=== PATIENT | female | born 1970 | race Caucasian/White ===

== ENCOUNTER 2017-04-07 14:56 | Outpatient (CLI) | payer OTHER ==
--- NOTE | 2017-04-08 09:18 | XRAY Report ---
TWO VIEW CHEST: 04/07/2017 CLINICAL INDICATION: Cough, sarcoidosis. COMPARISON: CT of 12/05/2014, chest x-ray of 12/03/2014. FINDINGS: Frontal and lateral views of the chest demonstrate a normal cardiac silhouette. There has been progression of interstitial disease as well as increasing prominence of the left hilum, compatib le with progression of the given diagnosis of sarcoidosis. No focal infiltrate, effusion, or pneumoth orax is present. IMPRESSION: PROGRESSING INTERSTITIAL DISEASE AND LEFT HILAR PROMINENCE, COMPATIBLE WITH PROGRESSION OF SARCOIDOSIS. JOB #: [id number] EXT JOB #:[id number]
== END 2017-04-07 14:57 | disposition home or self-care (01) ==
LOC: DI.S 14:56
PROVIDERS: ATTEND Physician Assistant
DX: D86.0 Sarcoidosis of lung (principal)
CPT/HCPCS: 71020

== ENCOUNTER 2017-07-08 10:37 | Outpatient (CLI) | payer OTHER ==
--- NOTE | 2017-07-14 11:42 | Mammography Report ---
EXAM: DIGITAL BILATERAL SCREENING MAMMOGRAM: 07/08/2017 CLINICAL INDICATION: A 46-year-old, for screening. COMPARISON: 05/2016, 12/2011, 10/2008. TECHNIQUE: Routine CC and MLO projections were obtained of the breasts. Bilateral laterally exaggerated craniocaudal views. FINDINGS: Parenchymal tissue within the breasts is predominantly fatty replaced. There are no dominant masses, suspicious microcalcifications, or secondary signs of malignancy. In comparison to the previous studies, there are no significant changes. IMPRESSION: NO MAMMOGRAPHIC EVIDENCE OF MALIGNANCY. NO SIGNIFICANT INTERVAL CHANGES. RECOMMENDATION: Screening mammography is recommended annually. BIRADS category 1 - negative. STANDARD QUALIFYING STATEMENTS: 1. This examination was reviewed with the aid of Computed-Aided Detection (CAD) . 2. A negative or benign imaging report should not delay biopsy if clinically suspicious findings are present. Consider surgical consultation if warranted. More than 5% of cancers are not identified by imaging. 3. Dense breasts may obscure an underlying neoplasm. TD: 07/09/2017 16:36 ROSCOE
== END 2017-07-08 10:38 | disposition home or self-care (01) ==
LOC: DI.S 10:37
PROVIDERS: ATTEND Physician Assistant
DX: Z12.31 Encounter for screening mammogram for malignant neoplasm of breast (principal)
CPT/HCPCS: 77067

== ENCOUNTER 2019-05-09 08:03 | Outpatient (CLI) | payer OTHER ==
[2019-05-09 11:22] LABS: BASOPHILS # (AUTO) 0.1 10^3/uL (0.0-0.1); BASOPHILS % (AUTO) 1.2 %; EOSINOPHILS # (AUTO) 0.2 10^3/uL (0.0-0.7); EOSINOPHILS % (AUTO) 1.6 %; HGB - HEMOGLOBIN 14.3 g/dL (12.0-16.0); LYMPHOCYTES # (AUTO) 2.3 10^3/uL (1.5-3.5); LYMPHOCYTES % (AUTO) 19.9 %; MEAN CORPUSCULAR HEMOGLOBIN 28.8 pg (27.0-31.0); MEAN CORPUSCULAR HGB CONC 32.6 g/dL (32.0-36.0); MEAN CORPUSCULAR VOLUME 88.3 fL (81.0-99.0); MEAN PLATELET VOLUME 9.7 fL (7.9-10.8); MONOCYTES % (AUTO) 8.8 %; NEUTROPHILS # (AUTO) 7.8 10^3/uL (1.5-6.6); NEUTROPHILS % (AUTO) 67.8 %; PLT - PLATELET COUNT 364 10^3/uL (130-450); RED BLOOD COUNT 4.97 10^6/uL (4.20-5.40); RED CELL DISTRIBUTION WIDTH 13.7 % (12.0-15.0); WHITE BLOOD COUNT 11.5 x10^3/uL (4.8-10.8)
[2019-05-09 11:41] LABS: ALBUMIN 3.6 g/dL (3.2-5.5); ALBUMIN/GLOBULIN RATIO 1.2 (1.0-2.2); ALKALINE PHOSPHATASE 30 IU/L (42-121); ALT ALANINE AMINOTRANSFERASE 22 IU/L (10-60); AST ASPARTATE AMINOTRANSFERASE 17 IU/L (10-42); BILIRUBIN,TOTAL 0.7 mg/dL (0.2-1.0); BUN - BLOOD UREA NITROGEN 20 mg/dL (6-20); CALCIUM 8.6 mg/dL (8.5-10.3); CARBON DIOXIDE - CO2 29 mmol/L (21-32); CHLORIDE 102 mmol/L (101-111); CHOL/HDL RATIO 3.4 (<4.4); CHOLESTEROL 238 mg/dL; GFR - MDRD 59 (>89); GLUCOSE 78 mg/dL (70-100); HDL CHOLESTEROL 70 mg/dL; LDL CHOLESTEROL,CALCULATED 158 mg/dL; LDL/HDL RATIO 2.3 (<4.4); SODIUM 139 mmol/L (135-145); TOTAL PROTEIN 6.5 g/dL (6.7-8.2); VLDL CHOLESTEROL 10 mg/dL
== END 2019-05-09 08:04 | disposition home or self-care (01) ==
LOC: LAB.S 08:03
PROVIDERS: ATTEND Physician Assistant
DX: D86.0 Sarcoidosis of lung (principal); Z13.220 Encounter for screening for lipoid disorders; Z13.1 Encounter for screening for diabetes mellitus
CPT/HCPCS: 36415; 80053; 80061; 83721; 85025

== ENCOUNTER 2021-07-23 10:05 | Outpatient (CLI) | payer OTHER ==
--- NOTE | 2021-07-23 10:50 | XRAY Report ---
PROCEDURE: Cervical Spine 2 View INDICATIONS: NECK PAIN TECHNIQUE: 3 view(s) of the cervical spine were acquired. COMPARISON: None. FINDINGS: Bones: No fractures or dislocations to the T1 level. The lateral masses of C1 appear intact on the odontoid view. No suspicious bony lesions. Multilevel disc space narrowing and endplate osteophyte formation. Facet hypertrophy throughout the mid and lower cervical spine. Soft tissues: No prevertebral soft tissue swelling. IMPRESSION: Multilevel degenerative disc and facet disease. No acute fracture. No osseous lesion. If symptoms and/or clinical suspicion for pathology continue, further assessment with repeat plain film s, or advanced imaging (e.g., CT, MRI, or bone scan) is recommended for further assessment. Reviewed by: Rasheeda Acosta MD on 07/23/2021 10:49 AM [facility] Approved by: Rasheeda Acosta MD on 07/23/2021 10:49 AM [facility] Station ID: [id number]
== END 2021-07-23 10:06 | disposition home or self-care (01) ==
LOC: DI.S 10:05
PROVIDERS: ATTEND Registered Nurse
DX: M47.812 Spondylosis without myelopathy or radiculopathy, cervical region (principal); M50.30 Other cervical disc degeneration, unspecified cervical region

== ENCOUNTER 2021-08-28 14:22 | Outpatient (CLI) | payer OTHER ==
--- NOTE | 2021-08-28 16:45 | Ultrasound Report ---
PROCEDURE: Ext Limited Non Vascular INDICATIONS: SWELLING,MASS, LUMP UPPER LEFT LIMB TECHNIQUE: Real-time scanning was performed of the left upper extremity (posterior forearm), with im age documentation. COMPARISON: None. FINDINGS: No sonographic evidence of a mass in the area of clinical concern. However, mild soft tiss ue edema is seen. IMPRESSION: Mild soft tissue edema in the area of clinical concern. Reviewed by: Tommy Law MD on 08/28/2021 4:43 PM PST Approved by: Tommy Law MD on 08/28/2021 4:43 PM PST Station ID: [id number]
== END 2021-08-28 14:23 | disposition home or self-care (01) ==
LOC: DI 14:22
PROVIDERS: ATTEND Registered Nurse
DX: R60.0 Localized edema (principal)